=== PATIENT | female | born 1980 | race Caucasian/White ===

== ENCOUNTER → 2016-09-16 | Outpatient (REF) | payer OTHER, SELFPAY ==
[~2016-09-16] MED LIST: ACET50TA PO; ACET65TA; ADACEL IM; CEFT500T; IBUP80TA PO; MACROBID; PRENTAB74 PO
== END ==
LOC: M LAB REF 09:14
PROVIDERS: ATTEND Physician Assistant
DX: J02.9 Acute pharyngitis, unspecified (principal)

== ENCOUNTER → 2017-01-09 | Outpatient (REF) | payer OTHER | LOC: M LAB REF 10:22 | PROVIDERS: ATTEND Physician Assistant | DX: R30.0 Dysuria (principal) ==

== ENCOUNTER → 2017-01-18 | Outpatient (REF) | payer OTHER | LOC: M SFHCCLAY 10:56 | PROVIDERS: ATTEND Family Medicine | DX: R30.0 Dysuria (principal) ==

== ENCOUNTER → 2017-08-02 | Outpatient (CLI) | payer OTHER ==
[2017-08-02 20:41] LABS: BASO % 0.6 % (0.0-1.0); EOS # 0.1 10^3/uL (0.0-0.50); EOS % 1.7 % (0.0-3.0); HEMATOCRIT 41.6 % (36.0-47.0); HEMOGLOBIN 13.9 g/dl (12.0-15.5); IMMATURE GRANULOCYTE % 0.1 % (0-3.0); LYMPH % 42.5 % (24.0-44.0); MEAN CORPUSCULAR HEMOGLOBIN 28.5 pg (27.0-33.0); MEAN CORPUSCULAR HGB CONC 33.4 g/dl (32.0-36.5); MEAN CORPUSCULAR VOLUME 85.4 fl (80.0-96.0); MONO # 0.8 10^3/uL (0.0-0.8); MONO % 10.8 % (0.0-5.0); NEUTROPHILS # 3.2 10^3/uL (1.8-7.7); NEUTROPHILS % 44.3 % (36.0-66.0); PLATELET COUNT, AUTOMATED 298 10^3/uL (150-450); RED BLOOD COUNT 4.87 10^6/uL (4.00-5.40); RED CELL DISTRIBUTION WIDTH 12.4 % (11.5-14.5); WHITE BLOOD COUNT 7.1 10^3/uL (4.0-10.0)
[2017-08-02 20:56] LABS: INR 0.84; PROTHROMBIN TIME 11.5 SECONDS (12.4-14.5)
[2017-08-02 20:57] LABS: PARTIAL THROMBOPLASTIN TIME 27.9 SECONDS (26.8-37.9)
[2017-08-02 21:08] LABS: ALBUMIN 3.5 GM/DL (3.2-5.2); ALKALINE PHOSPHATASE 75 U/L (45-117); ALT/SGPT 30 U/L (12-78); ANION GAP 5 MEQ/L (8-16); AST/SGOT 17 U/L (7-37); BILIRUBIN,TOTAL 0.2 MG/DL (0.2-1.0); BLOOD UREA NITROGEN 13 MG/DL (7-18); CALCIUM LEVEL 8.4 MG/DL (8.5-10.1); CARBON DIOXIDE LEVEL 30 MEQ/L (21-32); CHLORIDE LEVEL 110 MEQ/L (98-107); CREATININE FOR GFR 0.84 MG/DL (0.55-1.30); GLOMERULAR FILTRATION RATE > 60.0 (>60); GLUCOSE, FASTING 89 MG/DL (70-100); HCG, SERUM QUANTITATIVE < 1.0 MIU/ML; POTASSIUM SERUM 3.9 MEQ/L (3.5-5.1); SODIUM LEVEL 145 MEQ/L (136-145)
== END ==
LOC: M LAB 20:16
DX: N92.4 Excessive bleeding in the premenopausal period (principal)
CPT/HCPCS: 80053

== ENCOUNTER 2019-01-13 12:58 | Day surgery (SDC) | payer OTHER ==
[~2019-01-13] VITALS: Ht 158.8 cm; Wt 71.7 kg
[~2019-01-13 12:58] MED LIST changes: -ACET50TA PO; +BUPIVACAINE/EPIN 0.25% 30 ML VIAL As Ordered ONE; +EXCETAB33 PO; +IBUP1TAB7 PO; +LIDOCAINE 1% MDV 20ML VIAL SQ PRN; +LR 1,000 ML IV ONE; +MAPA500T17 PO; +NON-325T5 PO; +ceFAZolin SOD 2 GM in IV 1 EA IV ONE
[2019-01-13] MEDS ORDERED: ONDANSETRON 4MG/2ML VIAL (J2405) As Ordered ONE (14:23)
[2019-01-13] MEDS ORDERED: KETOROLAC 60 MG/2 ML VIAL (J1885) As Ordered ONE (14:23)
[2019-01-13] MEDS ORDERED: LIDOCAINE 2% INJ 100 MG/5 ML SDV (FOR ANES.) As Ordered ONE (14:23)
[2019-01-13] MEDS ORDERED: PROPOFOL 200 MG/20 ML VIAL As Ordered ONE (14:23)
[2019-01-13] MEDS ORDERED: dexameTHASONE 4 MG/ML 1ML VIAL (J1100) As Ordered ONE (14:23)
[2019-01-13] MEDS ORDERED: MIDAZOLAM INJ 2 MG/2 ML VIAL (J2250) As Ordered ONE (15:07)
[2019-01-13] MEDS ORDERED: fentaNYL 100 MCG/2 ML INJECTION (J3010) As Ordered ONE (15:07)
[2019-01-13] MEDS: PERCOCET 5MG/325MG TAB PO PRN ×2 (17:18→17:48)
[2019-01-13] MEDS ORDERED: PERCOCET 5MG/325MG TAB As Ordered ONE (17:18)
[2019-01-13] MEDS ORDERED: ONDANSETRON 4MG/2ML VIAL (J2405) IV PRN (17:30)
[2019-01-13] MEDS: HYDROMORPHONE HCL 0.5 MG/ 0.5 ML SYRINGE (J1170 PER 1) IV PRN ×2 (17:30→17:35)
[2019-01-13] MEDS ORDERED: fentaNYL 100 MCG/2 ML INJECTION (J3010) IV PRN (17:30)
[2019-01-13] MEDS ORDERED: LR 1,000 ML IV SCH (17:30)
[2019-01-13] MEDS ORDERED: oxyCODONE 5MG TAB PO PRN ×2 (18:31)
[2019-01-13] MEDS ORDERED: MORPHINE 4 MG/ML 1ML VIAL/SYRINGE (J2270) IV PRN (18:31)
[2019-01-13 19:35] VITALS: BP 127/73
--- NOTE | 2019-01-14 07:35 | RO ---
DATE OF PROCEDURE: 01/13/2019 PREPROCEDURE DIAGNOSIS: Right small finger flexor tendon laceration. POSTPROCEDURE DIAGNOSIS: Right small finger flexor tendon laceration. PROCEDURE: Staged flexor tendon reconstruction with Juvencio kelsey placement, A1 peace release, and A4 peace reconstruction. SURGEON: Dr. Kong Boles MICROCHIP SPECIALIST: Sherine Garrison PA-C. ANESTHESIA: General. TOURNIQUET TIME: 65 minutes. PREOPERATIVE ANTIBIOTICS: 2 grams of Ancef. INDICATION: 38-year-old female who, approximately 2 months ago, had a slip with a knife and cut her small finger. She thought it would get better over time. However, did not realize that she cut her tendon until eventually the finger continued not to move. She presented for further evaluation. At that point, we had discussed that this is likely to require two-stage intervention due to scarring of the flexor sheath. She expressed understanding with this along with all of the risks and benefits including but not limited to infection, damage to surrounding structures and need for other surgery. DESCRIPTION OF PROCEDURE: Patient was brought to the operating room (OR) in supine position on the operating table, underwent general anesthesia which point a time-out was held confirming site and side and surgery. We then injected 20 mL of 0.25% Marcaine with epinephrine doing an ulnar digital block along the line of incision. We then prepped and draped the patient in the usual fashion. I did a second time out. Once all in agreement, we elevated the tourniquet to 250 mmHg. We then did a diagonal incision the small finger pulp and did a mid axial excision along the length of the small finger on the radial aspect. Then we crossed into a Gruner incision up into the palm. Once we isolated both the radial and ulnar neurovascular bundles, we then identified the flexor tear. The proximal extent of the flexor digitorum profundus (FDP) was overlying the lumbricales. The patient had a very small portion of flexor digitorum superficialis (FDS). I do believe this was nonfunctioning as the patient was unable to fire her FDS in clinic and only one of the limbs was intact. We then released the A1 peace to fully retrieve and isolate the flexor sheath. A2 was intact, however, A4 had completely scarred down and was frail appearing and required reconstruction with the limbs of FDS and was sutured in place with #3-0 PDS. We then passed the Juvencio kelsey which was 3 mm, the same width of the intact FDP proximally and slide it under the A2 peace. We then sutured it to the FDP stump overlying the insertion and tagged it to the proximal extent of the FDP that was overlying the lumbricales. At this point, we irrigated the wound thoroughly and started our closure with #4-0 Monocryl. The patient was placed in the dorsal-blocking splint with wrist flexion. The wound was dressed with Adaptic, gauze, sterile Webril, the splint and thao. We then lowered the tourniquet at 65 minutes. We then extubated the patient and she was taken in stable to the postanesthesia care unit (PACU). POSTOPERATIVE PLAN: The patient will see a hand therapist as soon as possible to get her a removable brace started. We will immediately want her working on supple range of motion of the finger through passive range of motion to maintain alignment. We will then re-evaluate her at 2 months postoperatively because we will need to see a full supple range of motion prior to a stage II flexor tendon reconstruction. Once this is complete, we will then arrange for a palmaris longus graft at that time. The patient expressed understanding and is in agreement with this preoperatively.
== END 2019-01-13 19:40 | disposition home or self-care (01) ==
LOC: M SDC 12:58
PROVIDERS: ATTEND Orthopaedic Surgery Hand Surgery
DX: S66.126A Laceration of flexor muscle, fascia and tendon of right little finger at wrist and hand level, initial encounter (principal); J45.909 Unspecified asthma, uncomplicated; Z88.0 Allergy status to penicillin; Y92.000 Kitchen of unspecified non-institutional (private) residence as the place of occurrence of the external cause; Y93.89 Activity, other specified; Y99.9 Unspecified external cause status
CPT/HCPCS: 26390; C1713; J0690; J1100; J1170; J1885; J2250; J2405; J3010

== ENCOUNTER → 2019-02-05 | Outpatient (REF) | payer OTHER ==
[~2019-02-05] MED LIST changes: -BUPIVACAINE/EPIN 0.25% 30 ML VIAL As Ordered ONE; -LIDOCAINE 1% MDV 20ML VIAL SQ PRN; -LR 1,000 ML IV ONE; -ceFAZolin SOD 2 GM in IV 1 EA IV ONE
== END ==
LOC: M LAB REF 17:12 → EEVIPCON 17:12
PROVIDERS: ATTEND Orthopaedic Surgery Hand Surgery
DX: S61.401A Unspecified open wound of right hand, initial encounter (principal); X58.XXXA Exposure to other specified factors, initial encounter; Y92.9 Unspecified place or not applicable

== ENCOUNTER 2019-02-21 13:24 | Inpatient (IN) | payer OTHER ==
[~2019-02-21] VITALS: Ht 160 cm; Wt 70.5 kg
[2019-02-21 14:15] LABS: BASO # 0.1 10^3/uL (0.0-0.2); BASO % 1.1 % (0.0-1.0); EOS # 0.1 10^3/uL (0.0-0.5); EOS % 1.5 % (0.0-3.0); HEMATOCRIT 38.8 % (36.0-47.0); HEMOGLOBIN 12.7 g/dl (12.0-15.5); LYMPH # 2.7 10^3/uL (1.5-5.0); LYMPH % 31.4 % (24.0-44.0); MEAN CORPUSCULAR HEMOGLOBIN 28.4 pg (27.0-33.0); MEAN CORPUSCULAR HGB CONC 32.7 g/dl (32.0-36.5); MEAN CORPUSCULAR VOLUME 86.8 fl (80.0-96.0); MONO % 11.8 % (0.0-5.0); NEUTROPHILS # 4.6 10^3/uL (1.5-8.5); PLATELET COUNT, AUTOMATED 280 10^3/uL (150-450); RED BLOOD COUNT 4.47 10^6/uL (4.00-5.40); WHITE BLOOD COUNT 8.4 10^3/uL (4.0-10.0)
[2019-02-21] MEDS ORDERED: ZOFR4TAB16 PO (14:24)
[2019-02-21] MEDS ORDERED: BACT800T5 PO (14:24)
[2019-02-21] MEDS ORDERED: ceFAZolin SOD 2 GM in IV 1 EA IV ONE (14:30)
[2019-02-21 14:32] LABS: BLOOD UREA NITROGEN 12 MG/DL (7-18); CALCIUM LEVEL 8.3 MG/DL (8.5-10.1); CARBON DIOXIDE LEVEL 27 MEQ/L (21-32); CHLORIDE LEVEL 107 MEQ/L (98-107); CREATININE FOR GFR 0.96 MG/DL (0.55-1.30); GLOMERULAR FILTRATION RATE > 60.0 (>60); GLUCOSE, FASTING 90 MG/DL (70-100); POTASSIUM SERUM 3.4 MEQ/L (3.5-5.1); SODIUM LEVEL 140 MEQ/L (136-145)
[2019-02-21 14:41] LABS: ERYTHROCYTE SEDIMENTATION RATE 9 mm/hr (0-20)
[2019-02-21] MEDS ORDERED: ACETAMINOPHEN 325 MG TAB As Ordered ONE (15:49)
[2019-02-21] MEDS ORDERED: ACETAMINOPHEN TAB 650MG DOSE (2X325MG) PO ONE (16:00)
[2019-02-21] MEDS ORDERED: fentaNYL 100 MCG/2 ML INJECTION (J3010) As Ordered ONE ×2 (17:04→18:59)
[2019-02-21] MEDS ORDERED: dexameTHASONE 4 MG/ML 1ML VIAL (J1100) As Ordered ONE (17:04)
[2019-02-21] MEDS ORDERED: KETOROLAC 60 MG/2 ML VIAL (J1885) As Ordered ONE (17:04)
[2019-02-21] MEDS ORDERED: ONDANSETRON 4MG/2ML VIAL (J2405) As Ordered ONE (17:04)
[2019-02-21] MEDS ORDERED: LIDOCAINE 2% INJ 100 MG/5 ML SDV (FOR ANES.) As Ordered ONE (17:04)
[2019-02-21] MEDS ORDERED: HYDROmorphone HCL 2 MG/ML 1ML VIAL (J1170) As Ordered ONE (17:04)
[2019-02-21] MEDS ORDERED: ACETAMINOPHEN 1000MG 100ML IV BTL (OFIRMEV) (J0131 PER 10MG) As Ordered ONE (17:04)
[2019-02-21] MEDS ORDERED: PROPOFOL 200 MG/20 ML VIAL As Ordered ONE (17:04)
[2019-02-21] MEDS ORDERED: MIDAZOLAM INJ 2 MG/2 ML VIAL (J2250) As Ordered ONE (17:04)
[2019-02-21] MEDS ORDERED: BUPIVACAINE HCL 0.25% 10 ML VIAL As Ordered ONE (17:07)
[2019-02-21] MEDS ORDERED: BUPIVACAINE LIPOSOME/PF 1.3% 20ML VIAL (13.3MG/ML)(EXPAREL)(C9290 PER1MG) As Ordered ONE (17:07)
[2019-02-21] MEDS ORDERED: PHENYLephrine HCL 500 MCG/5 ML (100MCG/ML) SYRINGE (J2370) As Ordered ONE (18:36)
[2019-02-21] MEDS ORDERED: PERCOCET 5MG/325MG TAB As Ordered ONE (18:59)
[2019-02-21] MEDS: fentaNYL 100 MCG/2 ML INJECTION (J3010) IV PRN ×4 (19:00→19:15)
[2019-02-21] MEDS: PERCOCET 5MG/325MG TAB PO PRN ×2 (19:10→20:30)
[2019-02-21] MEDS ORDERED: LR 1,000 ML IV SCH (19:15)
[2019-02-21] MEDS ORDERED: ONDANSETRON 4MG/2ML VIAL (J2405) IM PRN (19:15)
[2019-02-21] MEDS ORDERED: METOCLOPRAMIDE INJ 10MG/2ML VIAL (J2765) IV PRN (19:15)
[2019-02-21] MEDS ORDERED: ONDANSETRON 4MG/2ML VIAL (J2405) IV PRN (19:15)
[2019-02-21] MEDS ORDERED: ACETAMINOPHEN TAB 650MG DOSE (2X325MG) PO PRN (19:15)
[2019-02-21] MEDS ORDERED: FLEET ENEMA PR PRN (19:15)
[2019-02-21] MEDS ORDERED: oxyCODONE 5MG TAB PO PRN (19:15)
[2019-02-21] MEDS ORDERED: NS 1,000 ML IV SCH (19:15)
[2019-02-21] MEDS ORDERED: MORPHINE 10 MG/ML 1ML VIAL (J2270) As Ordered ONE (19:20)
[2019-02-21] MEDS: MORPHINE 10 MG/ML 1ML VIAL (J2270) IV PRN ×4 (19:22→20:03)
--- NOTE | 2019-02-21 20:40 | RO ---
DATE OF PROCEDURE: 02/21/2019 PREOPERATIVE DIAGNOSIS: Right postoperative wound infection. POSTOPERATIVE DIAGNOSIS: Right postoperative wound infection. PROCEDURE: Right hand irrigation and debridement along with removal of hardware. INDICATION: This is a 38-year-old female who suffered a tendon laceration, at this point, approximately two or three months ago. When she was evaluated about five weeks after the injury it was too late to do a primary repair. Therefore, she was started on stage I of II of tendon repair. She underwent a Juvencio kelsey placement. Unfortunately about four weeks later she had a local infection. We tried doing a local irrigation and debridement, however, this proved ineffective. Her cultures grew back Methicillin-resistant Staphylococcus aureus (MRSA) and therefore we have go to back for repeat irrigation and debridement along with removal of hardware. Patient expressed understanding at this time including the risks and benefits including but not limited to infection, damage to surrounding structures, incomplete relief, and need for further surgery and she was in agreement with this. SURGEON: Dr. Kong Boles WOOD COATER: None. ANESTHESIA: General. ESTIMATED BLOOD LOSS: 20 mL TOURNIQUET TIME: 55 minutes, approximately. PREOPERATIVE ANTIBIOTICS: Antibiotics were held and so cultures were obtained, then we gave 2 grams of Ancef. COMPLICATIONS: None. SPECIMENS: We sent cultures along with soft tissues to pathology. DESCRIPTION OF PROCEDURE: Patient was brought to the operating room (OR) in supine position, at which point she underwent general anesthesia. We then injected 10 mL of 0.25% Marcaine along with 10 mL of Exparel in the form of ulnar median wrist block. At which point we prepped and draped the hand in the usual fashion. We used gravity exsanguination, elevated tourniquet to 250 mmHg. We then utilizing the old incisions, opened up her hand along with excising the sinus tract in her mid palm. We encountered some purulent material in the deep palm along with finger tip. We found the Juvencio kelsey and removed this. We isolated both the radial and ulnar digital nerves of the small finger and protected them. We explored until we encountered heavy tissue towards the middle of the palm. Once we thoroughly irrigated, debrided and had taken cultures and sent soft tissue for pathology, we ran 3 liters of normal saline through the wound. Prior to this we sharply debrided with curettes along with the distal phalanx because there were slits on x-ray. We then suture closed with #4-0 nylon interrupted fashion. We placed a big bulky dressing. Tourniquet was let down. Patient was awakened and taken to PACU in stable condition. POSTOPERATIVE PLAN: The patient will be admitted over the weekend with IV antibiotics. Will have a PICC placed and have IV consult. Start on buttermaker continuous churn IV antibiotics to help beat down this infection. Monitor her on telemetry and trend markers in the meantime. If her inflammatories stay down after 6 weeks of IV antibiotics and after being off for two weeks, we will consider restarting stage I of II flexor tendon repairs. Patient expressed understanding and agreed with the plan ahead of time.
[2019-02-21 21:50] VITALS: BP 134/92
[2019-02-21 22:15] VITALS: BP 132/89
[2019-02-21 22:45] VITALS: BP 142/98
[2019-02-21] MEDS: VANCOMYCIN HCL 1,000 MG, VIAL MATE ADAPTER 1 EACH in D5W 250 ML IV SCH (23:31)
[2019-02-21 23:45] VITALS: BP 135/84
[2019-02-22] VITALS (7 sets, daily range): BP systolic 107–152; BP diastolic 71–98
[2019-02-22] MEDS: oxyCODONE 5MG TAB PO PRN ×5 (00:45→19:46)
[2019-02-22] MEDS ORDERED: ONDANSETRON 4MG/2ML VIAL (J2405) IV PRN (03:15)
[2019-02-22] MEDS: VANCOMYCIN HCL 1,000 MG, VIAL MATE ADAPTER 1 EACH in D5W 250 ML IV SCH ×3 (06:44→23:02)
[2019-02-22] MEDS: MOM 30ML SUSPENSION UDC PO SCH (09:04)
[2019-02-22] MEDS: MORPHINE 2 MG/ML 1ML VIAL (J2270) IV PRN ×3 (09:04→17:36)
[2019-02-22] MEDS: ONDANSETRON 4MG/2ML VIAL (J2405) IV PRN ×2 (09:04→18:30)
--- NOTE | 2019-02-22 14:39 | PHACANCOPD ---
PHARMACY VANCOMYCIN DOSING Pt Demographics Demographics Patient Age:38 , Weight:70.490 , Gender: female Adjusted Body Weight Date: 02/22/19, Adjusted Body Weight: Kg Events Past 24 Hours Events Past 24 Hours: NO: Dialysis, Diuretic Therapy, Change in CrCl, Fever, Elevation in WBC, Pending Diagnostics, Pending Procedures, Other Vancomycin Vancomycin indication: post-op hand infection; h/o MRSA Vancomycin Target Ranges: 15-20 mcg/ml Vancomycin Load Y/N: No Load Dose Date Time Vancomycin Load Dose: Date: Time: Vancomycin Dose Date: 02/21/19. Current Vancomycin Dose: [1g IV q8h @23] Intermittent Dosing?: No Labs Labs Item Value Date Time Creatinine 0.96 MG/DL 02/21/19 1358 White Blood Count 8.4 10^3/uL 02/21/19 1358 Micro Microbiology 02/21/19 Fungal Smear, Received Pending 02/21/19 Fungal Culture, Received Pending 02/21/19 Gram Stain - Final, Resulted 02/21/19 Wound Culture, Resulted Pending 02/21/19 Anaerobic Culture, Resulted Pending Creatinine Clearance Date:02/22/19. Creatinine Clearance: [~70 ml/min]. Pending Labs Vanco trough scheduled 02/23 @06:00 Assessment and Plan Maintaining Current Dose?: Yes Reason for dose change: No Dose Change Pharmacist Note Pharmacist Note Date: 02/22/19. Pharmacist note: pt has been started on vancomycin for a post op infection of a right-hand tendon repair. She underwent an I&D and hardware removal last evening. She has not been on vancomycin at our facility in the past. On 02/05/19, her wound culture of her right hand grew MRSA (CLARY = 0.5), cultures from the OR yesterday are still pending. She received Ancef 2g yesterday in the OR and I have started her on vancomycin 1g IV q8h. Ortho plans for a PICC line and mcc abx therapy. I have a trough scheduled for tomorrow morning. We will continue to monitor and make adjustments as necessary. Brian Serrano Pharm.D. Feb 22, 2019 14:39
[2019-02-22] MEDS: ACETAMINOPHEN 500 MG TAB PO SCH (18:31)
[2019-02-22] MEDS: MORPHINE 4 MG/ML 1ML VIAL/SYRINGE (J2270) IV PRN (21:23)
[2019-02-23] MEDS: oxyCODONE 5MG TAB PO PRN ×5 (00:21→20:32)
[2019-02-23 02:00] VITALS: BP 123/84
[2019-02-23] MEDS: ACETAMINOPHEN 500 MG TAB PO SCH ×3 (02:22→17:54)
[2019-02-23] MEDS: MORPHINE 4 MG/ML 1ML VIAL/SYRINGE (J2270) IV PRN ×6 (02:34→22:58)
[2019-02-23 06:00] VITALS: BP 113/82
[2019-02-23 06:44] LABS: VANCOMYCIN LEVEL TROUGH 14.9 UG/ML (10.0-20.0)
[2019-02-23] MEDS: VANCOMYCIN HCL 1,000 MG, VIAL MATE ADAPTER 1 EACH in D5W 250 ML IV SCH ×3 (06:58→23:43)
[2019-02-23 07:22] LABS: BLOOD UREA NITROGEN 8 MG/DL (7-18); CALCIUM LEVEL 7.9 MG/DL (8.5-10.1); CARBON DIOXIDE LEVEL 27 MEQ/L (21-32); CHLORIDE LEVEL 110 MEQ/L (98-107); CREATININE FOR GFR 0.85 MG/DL (0.55-1.30); GLOMERULAR FILTRATION RATE > 60.0 (>60); GLUCOSE, FASTING 92 MG/DL (70-100); SODIUM LEVEL 142 MEQ/L (136-145)
[2019-02-23] MEDS: MOM 30ML SUSPENSION UDC PO SCH (09:01)
[2019-02-23 10:00] VITALS: BP 114/81
[2019-02-23 14:00] VITALS: BP_SYST 114; BP_SYST 122; BP_DIAS 81; BP_DIAS 82
[2019-02-23] MEDS: ONDANSETRON 4MG/2ML VIAL (J2405) IV PRN ×2 (15:00→20:32)
[2019-02-23 18:00] VITALS: BP 123/84
[2019-02-23 22:00] VITALS: BP 147/95
[2019-02-24] MEDS: oxyCODONE 5MG TAB PO PRN ×4 (00:36→19:58)
[2019-02-24] MEDS: ACETAMINOPHEN 500 MG TAB PO SCH ×3 (01:52→18:12)
[2019-02-24 06:00] VITALS: BP 104/69
[2019-02-24] MEDS: VANCOMYCIN HCL 1,000 MG, VIAL MATE ADAPTER 1 EACH in D5W 250 ML IV SCH ×3 (08:00→22:56)
[2019-02-24] MEDS: MORPHINE 4 MG/ML 1ML VIAL/SYRINGE (J2270) IV PRN ×2 (08:00→12:35)
[2019-02-24] MEDS: MOM 30ML SUSPENSION UDC PO SCH (09:00)
[2019-02-24] MEDS ORDERED: LIDOCAINE 1% MDV 20ML VIAL As Ordered ONE (10:36)
[2019-02-24] MEDS: IBUPROFEN 600 MG TAB PO PRN (12:35)
[2019-02-24] MEDS: MORPHINE 15 MG SA TAB PO SCH ×2 (12:36→21:01)
[2019-02-24 14:00] VITALS: BP 134/95
[2019-02-24] MEDS ORDERED: SODIUM CHLORIDE 0.9% INJ 10 ML SYR IV PRN (14:30)
[2019-02-24 15:37] LABS: VANCOMYCIN LEVEL TROUGH 17.4 UG/ML (10.0-20.0)
[2019-02-24 16:31] LABS: C REACTIVE PROTEIN QUANTITATIV 0.48 MG/DL (0.00-0.30)
[2019-02-24] MEDS: SODIUM CHLORIDE 0.9% INJ 10 ML SYR IV SCH (18:12)
[2019-02-24 19:00] VITALS: BP 153/72
[2019-02-24 20:00] VITALS: BP 141/78
[2019-02-25 00:26] VITALS: BP 113/66
[2019-02-25] MEDS: ACETAMINOPHEN 500 MG TAB PO SCH ×2 (02:20→08:54)
[2019-02-25] MEDS: SODIUM CHLORIDE 0.9% INJ 10 ML SYR IV SCH (05:51)
[2019-02-25] MEDS: oxyCODONE 5MG TAB PO PRN ×3 (06:08→16:20)
[2019-02-25] MEDS: VANCOMYCIN HCL 1,000 MG, VIAL MATE ADAPTER 1 EACH in D5W 250 ML IV SCH (07:07)
[2019-02-25] MEDS ORDERED: PERC5TAB12 PO (07:08)
[2019-02-25] MEDS ORDERED: MORP15TASA PO (07:08)
[2019-02-25 07:28] LABS: BLOOD UREA NITROGEN 7 MG/DL (7-18); C REACTIVE PROTEIN QUANTITATIV 0.54 MG/DL (0.00-0.30); CALCIUM LEVEL 8.2 MG/DL (8.5-10.1); CARBON DIOXIDE LEVEL 28 MEQ/L (21-32); CHLORIDE LEVEL 108 MEQ/L (98-107); CPK CREATINE PHOSPHOKINASE 32 U/L (26-192); CREATININE FOR GFR 0.71 MG/DL (0.55-1.30); GLOMERULAR FILTRATION RATE > 60.0 (>60); GLUCOSE, FASTING 83 MG/DL (70-100); POTASSIUM SERUM 3.6 MEQ/L (3.5-5.1); SODIUM LEVEL 141 MEQ/L (136-145); VANCOMYCIN LEVEL TROUGH 14.5 UG/ML (10.0-20.0)
[2019-02-25 08:00] VITALS: BP 122/87
[2019-02-25] MEDS: MORPHINE 15 MG SA TAB PO SCH (08:53)
[2019-02-25] MEDS: MOM 30ML SUSPENSION UDC PO SCH (08:53)
--- NOTE | 2019-02-25 08:57 | CR ---
DATE OF CONSULTATION: 02/24/2019 I was asked to consult by orthopedic surgery for evaluation of postoperative wound infection of the right index finger with Staphylococcus aureus (MRSA). HISTORY OF PRESENT ILLNESS: Karina is a pleasant 38-year-old female who had cut her right small finger with a knife when cutting chicken in November 2018. The patient came to the emergency room (ER) where she had some glue placed. She did not realize she cut her tendon and did not get any attention until January. She was seen by orthopedic surgery and was diagnosed with a finger flexor tendon laceration. On 01/13/2019, the patient had surgery done with a stage flexor tendon reconstruction with a arina kelsey placement, A1 peace release. This was complicated by a postoperative wound infection with culture positive for MRSA on 02/05/2019. The patient came back to the operating room on 02/21/2019 for right hand irrigation and debridement, removal of the hardware and IV antibiotics. She was started on IV vancomycin which she le been receiving a gram every 8 hours. She had a peripherally inserted central catheter (PICC) line placed and is scheduled for discharge tomorrow. She denies any fever or chills. No nausea, vomiting or diarrhea. She feels well. PAST MEDICAL HISTORY: Past medical history is non-revealing. PAST SURGICAL HISTORY: Tendon repair right lower finger. ALLERGIES: PENICILLIN. MEDICATIONS: - morphine 15 mg by mouth twice a day - ibuprofen 600 mg every 6 as needed - vancomycin 1 gram IV every 8 hours - Zofran as needed - Percocet as needed. LABS: White count 8.4, hemoglobin 12.7, hematocrit 38.8, platelets 280, 54% neutrophils, 31% lymphocytes, 12% monocytes. Sodium 142, potassium 4, chloride 110, bicarb 27, BUN 8, creatinine 0.85, glucose 92, calcium 7.9, CRP 0.48. Wound culture on 02/05/2019 and 02/21/2019 were positive for MRSA resistant to erythromycin, methicillin and penicillin. Peripherally inserted central catheter (PICC) line was placed today. PHYSICAL EXAMINATION: Temperature is 98.5, pulse 95, respirations 18, blood pressure 153/72, O2 sat 99% on room air. Heart: Normal S1, S2. No murmurs, rubs or gallops. Lungs are clear. No wheezes or rhonchi. Abdomen: Soft, nontender. No hepatosplenomegaly. Extremities: No edema. Right hand with an incision at the base of the small finger all the way down to the wrist area. I did not open the wound but the patient did show me picture on her phone from yesterday wound dressing change. Left arm has a PICC line. She has an ecchymosis in the forearm measuring about 6 x 4 cm. IMPRESSION: Postoperative wound infection status post tendon repair. She irrigation and debridement, removal of the hardware and has been on IV vancomycin for the past 3 days. PLAN: Discontinue IV vancomycin on discharge. Start with daptomycin 500 mg IV every 24 hours. I will get prior authorization for daptomycin from her insurance carrier. Hopefully, this will be authorized as it will be much some simpler then doing every 8 hours infusion. Daptomycin could be given as a push over a 10-minute period. Will obtain CPK baseline and she will need to be monitored weekly with a CBC, CRP, sed rate, basic profile. I have discussed the case with Kyleigh from [employer] who is working on her prior authorization for daptomycin. Scripts have been written for anticipated discharge tomorrow. She will be treated initially with 2 weeks of IV antibiotic and possibly after switched to linezolid by mouth
[2019-02-25] MEDS: IBUPROFEN 600 MG TAB PO PRN (14:22)
[2019-02-25 16:00] VITALS: BP 138/83
--- NOTE | 2019-02-25 16:22 | REP ---
PICC line insertion under ultrasound guidance. The procedure was performed by LEANN Garcia, under the direct supervision of Dr. Hilario. The risks and benefits of the procedure were explained to the patient and informed consent was obtained both verbally and written. Directly prior to the start of the procedure, a formal timeout was completed in the procedure room. The left basilic vein was localized using ultrasound guidance. The skin was prepped and draped in the sterile fashion. 4 ml 1% lidocaine was used as a local anesthetic. Using ultrasound guidance the left basilic vein was cannulated and a 0.018 guidewire was inserted and advanced to the midline brachiocephalic vein using fluoroscopic guidance. The needle was removed and a 4.5 [place]an dilator and peel-away sheath was inserted over the guidewire. A 4.5 [place] single lumen catheter was cut to the length of 30 cm. The dilator was removed and the catheter was inserted over the guide wire with the tip ending in the SVC. The peel-away sheath was removed and the catheter was flushed with heparinized saline as per hospital protocol. The catheter was affixed to the skin and a sterile dressing was applied. The patient tolerated the procedure well and there were no immediate complications. 0.2 minutes of fluoroscopy time was utilized for this procedure. Some fluoroscopic images are performed with last image hold technology. These images require no additional radiation. Reviewed by LEANN Weldon 02/24/2019 04:09 P Electronically Signed by Saroj Hilario MD 02/25/2019 04:14 P
[2019-02-25] MEDS ORDERED: DAPTOmycin 500 MG in NS 50 ML IV ONE (17:00)
== END 2019-02-25 18:45 | disposition home or self-care (01) | DRG 317 ==
LOC: M SDC 13:24 → M MS5PR 21:40 → M SDC 02-22 05:19 → M MS5PR 02-22 05:20 → M PED 02-24 18:45
PROVIDERS: ADMIT Orthopaedic Surgery Hand Surgery; ATTEND Orthopaedic Surgery Hand Surgery
PROC: 0XBJ0ZZ Excision of Right Hand, Open Approach (ICD-10-PCS; 2019-02-21)
PROC: 02HV33Z Insertion of Infusion Device into Superior Vena Cava, Percutaneous Approach (ICD-10-PCS; 2019-02-21)
PROC: 0LPX0JZ Removal of Synthetic Substitute from Upper Tendon, Open Approach (ICD-10-PCS; principal; 2019-02-21 07:51)
DX: T84.69XA Infection and inflammatory reaction due to internal fixation device of other site, initial encounter (principal); B95.62 Methicillin resistant Staphylococcus aureus infection as the cause of diseases classified elsewhere; Y83.1 Surgical operation with implant of artificial internal device as the cause of abnormal reaction of the patient, or of later complication, without mention of misadventure at the time of the procedure; Z88.0 Allergy status to penicillin; Z79.899 Other long term (current) drug therapy

== ENCOUNTER → 2019-03-03 | Outpatient (REF) | payer OTHER ==
[~2019-03-03] MED LIST changes: +BACT800T5 PO; +MORP15TASA PO; +PERC5TAB12 PO; +ZOFR4TAB16 PO
[2019-03-03 13:32] LABS: HEMATOCRIT 36.4 % (36.0-47.0); MEAN CORPUSCULAR HEMOGLOBIN 28.2 pg (27.0-33.0); MEAN CORPUSCULAR VOLUME 85.6 fl (80.0-96.0); PLATELET COUNT, AUTOMATED 264 10^3/uL (150-450); RED BLOOD COUNT 4.25 10^6/uL (4.00-5.40); WHITE BLOOD COUNT 6.7 10^3/uL (4.0-10.0)
[2019-03-03 13:54] LABS: BLOOD UREA NITROGEN 17 MG/DL (7-18); C REACTIVE PROTEIN QUANTITATIV < 0.30 MG/DL (0.00-0.30); CALCIUM LEVEL 8.6 MG/DL (8.5-10.1); CARBON DIOXIDE LEVEL 27 MEQ/L (21-32); CHLORIDE LEVEL 108 MEQ/L (98-107); CREATININE FOR GFR 0.74 MG/DL (0.55-1.30); GLOMERULAR FILTRATION RATE > 60.0 (>60); GLUCOSE, FASTING 73 MG/DL (70-100); POTASSIUM SERUM 3.9 MEQ/L (3.5-5.1); SODIUM LEVEL 143 MEQ/L (136-145)
[2019-03-03 14:15] LABS: ERYTHROCYTE SEDIMENTATION RATE 9 mm/hr (0-20)
== END ==
LOC: M SHH 12:49
PROVIDERS: ATTEND Internal Medicine Infectious Disease
DX: T84.59XA Infection and inflammatory reaction due to other internal joint prosthesis, initial encounter (principal); L08.9 Local infection of the skin and subcutaneous tissue, unspecified; B95.62 Methicillin resistant Staphylococcus aureus infection as the cause of diseases classified elsewhere

== ENCOUNTER → 2019-03-10 | Outpatient (REF) | payer OTHER ==
[2019-03-10 15:34] LABS: HEMATOCRIT 38.6 % (36.0-47.0); HEMOGLOBIN 12.3 g/dl (12.0-15.5); MEAN CORPUSCULAR HGB CONC 31.9 g/dl (32.0-36.5); MEAN CORPUSCULAR VOLUME 87.7 fl (80.0-96.0); PLATELET COUNT, AUTOMATED 300 10^3/uL (150-450); WHITE BLOOD COUNT 7.2 10^3/uL (4.0-10.0)
[2019-03-10 16:02] LABS: BLOOD UREA NITROGEN 10 MG/DL (7-18); C REACTIVE PROTEIN QUANTITATIV < 0.30 MG/DL (0.00-0.30); CALCIUM LEVEL 8.4 MG/DL (8.5-10.1); CARBON DIOXIDE LEVEL 26 MEQ/L (21-32); CHLORIDE LEVEL 106 MEQ/L (98-107); CREATININE FOR GFR 0.73 MG/DL (0.55-1.30); GLOMERULAR FILTRATION RATE > 60.0 (>60); GLUCOSE, FASTING 74 MG/DL (70-100); POTASSIUM SERUM 3.8 MEQ/L (3.5-5.1); SODIUM LEVEL 141 MEQ/L (136-145); VANCOMYCIN LEVEL TROUGH 13.8 UG/ML (10.0-20.0)
[2019-03-10 16:25] LABS: ERYTHROCYTE SEDIMENTATION RATE 6 mm/hr (0-20)
== END ==
LOC: M SHH 14:40
PROVIDERS: ATTEND Internal Medicine Infectious Disease
DX: L08.9 Local infection of the skin and subcutaneous tissue, unspecified (principal); B95.62 Methicillin resistant Staphylococcus aureus infection as the cause of diseases classified elsewhere; T84.59XA Infection and inflammatory reaction due to other internal joint prosthesis, initial encounter; Y83.1 Surgical operation with implant of artificial internal device as the cause of abnormal reaction of the patient, or of later complication, without mention of misadventure at the time of the procedure

== ENCOUNTER → 2019-03-27 | Outpatient (REF) | payer OTHER ==
[2019-03-27 13:34] LABS: BASO # 0.1 10^3/uL (0.0-0.2); BASO % 0.9 % (0.0-1.0); EOS # 0.1 10^3/uL (0.0-0.5); EOS % 1.8 % (0.0-3.0); HEMATOCRIT 40.1 % (36.0-47.0); LYMPH # 2.1 10^3/uL (1.5-5.0); LYMPH % 38.8 % (24.0-44.0); MEAN CORPUSCULAR HEMOGLOBIN 28.1 pg (27.0-33.0); MEAN CORPUSCULAR HGB CONC 32.4 g/dl (32.0-36.5); MEAN CORPUSCULAR VOLUME 86.6 fl (80.0-96.0); MONO # 0.6 10^3/uL (0.0-0.8); MONO % 11.2 % (0.0-5.0); NEUTROPHILS # 2.6 10^3/uL (1.5-8.5); NEUTROPHILS % 47.1 % (36.0-66.0); PLATELET COUNT, AUTOMATED 165 10^3/uL (150-450); RED BLOOD COUNT 4.63 10^6/uL (4.00-5.40); WHITE BLOOD COUNT 5.5 10^3/uL (4.0-10.0)
== END ==
LOC: M SFHCPLAZ 11:50
PROVIDERS: ATTEND Internal Medicine Infectious Disease
DX: A49.02 Methicillin resistant Staphylococcus aureus infection, unspecified site (principal)

== ENCOUNTER → 2019-05-01 | Outpatient (REF) | payer OTHER ==
[2019-05-01 16:08] LABS: BASO % 0.5 % (0.0-1.0); EOS # 0.2 10^3/uL (0.0-0.5); EOS % 2.4 % (0.0-3.0); HEMATOCRIT 39.4 % (36.0-47.0); HEMOGLOBIN 12.2 g/dl (12.0-15.5); LYMPH # 2.4 10^3/uL (1.5-5.0); LYMPH % 37.7 % (24.0-44.0); MEAN CORPUSCULAR HEMOGLOBIN 27.7 pg (27.0-33.0); MEAN CORPUSCULAR VOLUME 89.5 fl (80.0-96.0); MONO # 0.6 10^3/uL (0.0-0.8); MONO % 9.6 % (0.0-5.0); NEUTROPHILS # 3.1 10^3/uL (1.5-8.5); NEUTROPHILS % 49.5 % (36.0-66.0); PLATELET COUNT, AUTOMATED 278 10^3/uL (150-450); WHITE BLOOD COUNT 6.2 10^3/uL (4.0-10.0)
[2019-05-01 17:44] LABS: ERYTHROCYTE SEDIMENTATION RATE 5 mm/hr (0-20)
== END ==
LOC: M LABDRAW1 15:22
PROVIDERS: ATTEND Orthopaedic Surgery Hand Surgery
DX: Z79.899 Other long term (current) drug therapy (principal); S66.12 Laceration of flexor muscle, fascia and tendon of other and unspecified finger at wrist and hand level

== ENCOUNTER → 2019-12-19 | Outpatient (CLI) | payer OTHER ==
[~2019-12-19] MED LIST changes: +NEPH1TAB PO; +PNV1TAB6 PO; +TUMS500C PO; +UNIS25TA3 PO
--- NOTE | 2020-01-08 11:16 | REP ---
FIRST TRIMESTER OBSTETRICAL ULTRASOUND CLINICAL: Dating and viability. TECHNIQUE: Transabdominal obstetrical ultrasound with color Doppler evaluation. FINDINGS: Ultrasound examination demonstrates a single live early intrauterine . Gestational sac with pole noted. [place]-rump length (CRL) 49 mm corresponds to 11 weeks 4 days gestational age with estimated date of delivery 07/05/2020. heart rate equals 150 beats per minute. Maternal ovaries are normal. There is suggestion for a small anterior intramural fibroid measuring 1.4 x 1.6 x 0.6 cm. Cervix measures 3.9 cm in length and appears closed. IMPRESSION: Single live early intrauterine with measurement at 11 weeks 4 days gestational age. Complete anatomical assessment should be performed at 19-20 weeks. MTDD
== END ==
LOC: M WHC 14:52
PROVIDERS: ATTEND Nurse Practitioner Family
DX: Z36.89 Encounter for other specified antenatal screening (principal); Z3A.11 11 weeks gestation of pregnancy

== ENCOUNTER 2020-02-17 11:15 | Outpatient (CLI) | payer OTHER ==
[~2020-02-17] VITALS: Ht 160 cm; Wt 70.4 kg
[~2020-02-17 11:15] MED LIST changes: -NEPH1TAB PO; -PNV1TAB6 PO; -TUMS500C PO; -UNIS25TA3 PO
[2020-02-17] MEDS ORDERED: LR 1,000 ML IV ONE (13:00)
[2020-02-17 13:36] LABS: BASO % 0.4 % (0.0-1.0); EOS # 0.1 10^3/uL (0.0-0.5); EOS % 0.7 % (0.0-3.0); HEMATOCRIT 31.7 % (36.0-47.0); HEMOGLOBIN 10.6 g/dl (12.0-15.5); LYMPH % 22.1 % (24.0-44.0); MEAN CORPUSCULAR HEMOGLOBIN 28.8 pg (27.0-33.0); MEAN CORPUSCULAR HGB CONC 33.4 g/dl (32.0-36.5); MEAN CORPUSCULAR VOLUME 86.1 fl (80.0-96.0); MONO # 0.8 10^3/uL (0.0-0.8); MONO % 8.4 % (0.0-5.0); NEUTROPHILS # 6.1 10^3/uL (1.5-8.5); PLATELET COUNT, AUTOMATED 232 10^3/uL (150-450); RED BLOOD COUNT 3.68 10^6/uL (4.00-5.40)
[2020-02-17] MEDS ORDERED: METOCLOPRAMIDE INJ 10MG/2ML VIAL (J2765 PER 1) IV ONE (14:00)
[2020-02-17 14:09] LABS: APPEARANCE, URINE CLEAR (CLEAR); BACTERIA, URINE AUTO 1+ (NEGATIVE); BILIRUBIN, URINE AUTO NEGATIVE (NEGATIVE); BLOOD, URINE BLOOD NEGATIVE (NEGATIVE); COLOR, URINE COLORLESS (YELLOW); GLUCOSE, URINE (UA) AUTO NEGATIVE (NEGATIVE); KETONE, URINE AUTO NEGATIVE (NEGATIVE); LEUKOCYTE ESTERASE, URINE AUTO NEGATIVE (NEGATIVE); NITRITE, URINE AUTO NEGATIVE (NEGATIVE); PROTEIN, URINE AUTO NEGATIVE (NEGATIVE); RBC, URINE AUTO 0 /HPF (0-3); SPECIFIC GRAVITY URINE AUTO 1.001 (1.002-1.035); SQUAMOUS EPITHELIAL CELL UR AU 0 /HPF (0-6); UROBILINOGEN, URINE AUTO 0.2 mg/dL (0.0-2.0); WBC, URINE AUTO 0 /HPF (0-3)
[2020-02-17 14:11] LABS: ALBUMIN 2.6 GM/DL (3.2-5.2); ALT/SGPT 27 U/L (12-78); BILIRUBIN,TOTAL 0.2 MG/DL (0.2-1.0); BLOOD UREA NITROGEN 12 MG/DL (7-18); CALCIUM LEVEL 8.6 MG/DL (8.5-10.1); CARBON DIOXIDE LEVEL 22 MEQ/L (21-32); CHLORIDE LEVEL 107 MEQ/L (98-107); CREATININE FOR GFR 0.53 MG/DL (0.55-1.30); GLOMERULAR FILTRATION RATE > 60.0 (>60); GLUCOSE, FASTING 71 MG/DL (70-100); POTASSIUM SERUM 5.9 MEQ/L (3.5-5.1); SODIUM LEVEL 136 MEQ/L (136-145); TOTAL PROTEIN 6.2 GM/DL (6.4-8.2)
[2020-02-17] MEDS ORDERED: NEPH1TAB PO (14:36)
[2020-02-17] MEDS ORDERED: PNV1TAB6 PO (14:36)
[2020-02-17] MEDS ORDERED: TUMS500C PO (14:36)
[2020-02-17] MEDS ORDERED: UNIS25TA3 PO (14:36)
== END 2020-02-17 15:15 | disposition home or self-care (01) ==
LOC: M LDO 11:15
PROVIDERS: ATTEND Obstetrics & Gynecology
DX: O99.282 Endocrine, nutritional and metabolic diseases complicating pregnancy, second trimester (principal); E86.0 Dehydration; O21.9 Vomiting of pregnancy, unspecified; Z3A.20 20 weeks gestation of pregnancy; Z88.0 Allergy status to penicillin
CPT/HCPCS: 80053; 81001; 85025; 96374; J2765

== ENCOUNTER → 2020-02-18 | Outpatient (CLI) | payer OTHER ==
[~2020-02-18] MED LIST changes: +NEPH1TAB PO; +PNV1TAB6 PO; +TUMS500C PO; +UNIS25TA3 PO
--- NOTE | 2020-02-19 08:27 | REP ---
INDICATION: ANATOMY COMPARISON: 12/19/2019 TECHNIQUE: Transabdominal obstetrical ultrasound with color Doppler evaluation. FINDINGS: Examination demonstrates a single live intrauterine in breech presentation. motion is identified by technologist. Placenta is noted with suggestions for anterior and posterior lobes and grade 1 without evidence for placenta previa or abruption. Amniotic fluid volume is normal. Cervix measures approximately 3.7 cm in length and appears closed. The placental origin of the umbilical cord is noted on the posterior portion of the placenta. There is a nonspecific hypoechoic area within the anterior myometrium similar to prior examination and nonspecific in appearance.. Findings may represent possible fibroid. Gestational age by LMP 19 weeks 4 days with FERNANDO 07/10/2020. Gestational age by current measurements 20 weeks 1 day with FERNANDO 07/06/2020. FHR equals 150 beats per minute. BPD: 4.5 cm 19 weeks 4 days HC: 16.9 cm 19 weeks 4 days AC: 14.8 cm 20 weeks 0 days FL: 3.4 cm 20 weeks 3 days HL: 3.3 cm 21 weeks 0 days HC/AC: 1.15 Estimated weight 335 grams (77thpercentile). Anatomical assessment demonstrates normal structures including cranium, choroid plexus, cavum, cerebellum/posterior fossa, facial features, lungs, four-chamber heart/ventricular outflow tracts, diaphragm, stomach, cord insertion/three-vessel cord, kidneys/bladder, spine, and extremities. IMPRESSION: Single live intrauterine demonstrating appropriate interval growth. Anatomical assessment is complete and normal. Possible bilobed placenta <Electronically signed by Henry Lopez > 02/19/20 0823
== END ==
LOC: M WHC 14:54
PROVIDERS: ATTEND Obstetrics & Gynecology
DX: Z34.82 Encounter for supervision of other normal pregnancy, second trimester (principal); Z36.89 Encounter for other specified antenatal screening; Z3A.19 19 weeks gestation of pregnancy

== ENCOUNTER → 2020-04-16 | Outpatient (CLI) | payer OTHER ==
[~2020-04-16] MED LIST changes: +ACET-838 PO; -NON-325T5 PO
== END ==
LOC: M LAB 11:11
PROVIDERS: ATTEND Obstetrics & Gynecology
DX: Z34.82 Encounter for supervision of other normal pregnancy, second trimester (principal); Z36.89 Encounter for other specified antenatal screening

== ENCOUNTER → 2020-04-28 | Outpatient (CLI) | payer OTHER | LOC: M LAB 08:22 | PROVIDERS: ATTEND Obstetrics & Gynecology | DX: O99.810 Abnormal glucose complicating pregnancy (principal); Z3A.00 Weeks of gestation of pregnancy not specified ==

== ENCOUNTER → 2020-05-28 | Outpatient (CLI) | payer OTHER | LOC: M WHC 19:10 | PROVIDERS: ATTEND Obstetrics & Gynecology | DX: O24.419 Gestational diabetes mellitus in pregnancy, unspecified control (principal); Z3A.00 Weeks of gestation of pregnancy not specified ==

== ENCOUNTER → 2020-06-04 | Outpatient (CLI) | payer OTHER ==
--- NOTE | 2020-06-04 17:08 | REP ---
INDICATION: GROWTH. COMPARISON: 02/18/2020. TECHNIQUE: Real-time sonographic evaluation of the gravid uterus performed. FINDINGS: Estimated gestational age is34 weeks 6 days, EDC 07/10/2020. Today's measurements indicate appropriate growth. Presentation: Cephalic Placenta anterior and posterior, grade 2, without evidence of placenta previa. heart rate is recorded at 167 beats per minute. Amniotic fluid is subjectively normal. JOSE 11.9, normal range 7.9-24.9. Closed cervical length is measured at 3.1 cm. Biometry chart: BPD: 88 mm, 35 weeks 2 days, 56th percentile. HC: 311 mm, 34 weeks 5 days, 47th percentile AC: 321 mm, 36 weeks 0 days, 66th percentile Femur length: 68 mm, 35 weeks 1 days, 53rd percentile HC to AC ratio: 0.97, normal range 0.94-1.13. Estimated weight: 2708, 66th percentile. IMPRESSION: Viable single intrauterine gestation as above. Appropriate growth. <Electronically signed by Saroj Hilario > 06/04/20 [id number]
== END ==
LOC: M WHC 13:57
PROVIDERS: ATTEND Obstetrics & Gynecology
DX: O24.419 Gestational diabetes mellitus in pregnancy, unspecified control (principal); O09.523 Supervision of elderly multigravida, third trimester; Z3A.34 34 weeks gestation of pregnancy

== ENCOUNTER → 2020-06-10 | Outpatient (REF) | payer OTHER | LOC: M SFHCWAGY 12:55 | PROVIDERS: ATTEND Obstetrics & Gynecology | DX: O24.419 Gestational diabetes mellitus in pregnancy, unspecified control (principal) ==

== ENCOUNTER 2020-06-18 10:27 | Inpatient (IN) | payer OTHER ==
[~2020-06-18] VITALS: Ht 158.8 cm; Wt 72.0 kg
[2020-06-18] VITALS (22 sets, daily range): BP systolic 117–168; BP diastolic 75–99
[2020-06-18] MEDS ORDERED: METF500T13 PO (10:55)
[2020-06-18] MEDS ORDERED: LR 1,000 ML IV SCH (11:12)
[2020-06-18] MEDS ORDERED: LACTATED RINGER'S 1000 ML IV STA (11:12)
[2020-06-18] MEDS ORDERED: CALCIUM CARBONATE 500 MG CHEW U/D PO PRN (11:15)
[2020-06-18 11:48] LABS: HEMATOCRIT 32.3 % (36.0-47.0); HEMOGLOBIN 10.1 g/dl (12.0-15.5); MEAN CORPUSCULAR HEMOGLOBIN 24.8 pg (27.0-33.0); MEAN CORPUSCULAR HGB CONC 31.3 g/dl (32.0-36.5); MEAN CORPUSCULAR VOLUME 79.2 fl (80.0-96.0); PLATELET COUNT, AUTOMATED 279 10^3/uL (150-450); RED BLOOD COUNT 4.08 10^6/uL (4.00-5.40); WHITE BLOOD COUNT 14.3 10^3/uL (4.0-10.0)
[2020-06-18 12:15] LABS: ALT/SGPT 21 U/L (12-78); BILIRUBIN,TOTAL 0.3 MG/DL (0.2-1.0); CREATININE FOR GFR 0.63 MG/DL (0.55-1.30); GLOMERULAR FILTRATION RATE > 60.0 (>58); LDH LACTATE DEHYDROGENASE 222 U/L (84-246); URIC ACID 4.1 MG/DL (2.6-6.0)
[2020-06-18 12:25] LABS: CREATININE,RANDOM URINE 88.9 MG/DL; TOTAL PROTEIN,RANDOM URINE 17.8 MG/DL (0.0-12.0)
[2020-06-18 12:32] LABS: CORD GAS ABE V -5.5; CORD GAS HCO3 V 18.7 MEQ/L; CORD GAS O2 SAT V 96.9 %; CORD GAS PCO2 V 33.4 mmHg; CORD GAS PH V 7.367 UNITS; CORD GAS PO2 V 84.8 mmHg; CORD GAS TCO2 V 19.8 MEQ/L
[2020-06-18] MEDS ORDERED: FENTANYL 2MCG/ML ROPIVACAINE 0.2% IN 0.9% NACL 100ML IVBAG As Ordered ONE (12:56)
[2020-06-18] MEDS ORDERED: OXYTOCIN 30 UNITS IN 0.9% NaCl 500ML IV BAG (J2590) As Ordered ONE (12:58)
[2020-06-18] MEDS ORDERED: EPIDURAL/PCA KEYS XX PRN (13:15)
[2020-06-18] MEDS ORDERED: FENTANYL/ROPIVACAINE/NACL BAG 100 ML EPIDURAL SCH (13:15)
[2020-06-18] MEDS ORDERED: ePHEDrine SULFATE 25 MG/5 ML(5MG/ML) SYRINGE IV PRN (13:15)
[2020-06-18] MEDS ORDERED: LACTATED RINGER'S 1000 ML IV PRN (13:15)
[2020-06-18] MEDS ORDERED: NALOXONE INJ 0.4MG/1ML VIAL (J2310 PER 1MG) IV PRN (13:15)
[2020-06-18] MEDS ORDERED: ONDANSETRON 4MG/2ML VIAL IV PRN (13:15)
[2020-06-18] MEDS ORDERED: EPIDURAL COMMENT XX SCH (13:15)
[2020-06-18] MEDS ORDERED: diphenhydrAMINE 50MG/ML VIAL (J1200) IV PRN (13:15)
[2020-06-18] MEDS ORDERED: REFRIGERATOR IV KEYS XX PRN (13:15)
[2020-06-18 13:36] LABS: GLUCOSE,RANDOM 71 MG/DL (LESS THAN 200)
[2020-06-18] MEDS ORDERED: DIBUCAINE 1% OINTMENT 30GM TOP PRN (15:25)
[2020-06-18] MEDS ORDERED: ACETAMINOPHEN TAB 650MG DOSE (2X325MG) PO PRN (15:25)
[2020-06-18] MEDS ORDERED: DOCUSATE SODIUM 100MG CAPSULE PO PRN (15:25)
[2020-06-18] MEDS ORDERED: IBUPROFEN 600MG TAB PO PRN (15:25)
[2020-06-18] MEDS ORDERED: RHOGAM 300 MCG (1500 IU) INJ (J2790) IM SCH (15:25)
[2020-06-18] MEDS ORDERED: MEASLES,MUMPS,RUBELLA VACCINE INJ (MMR-II) (90707) SC SCH (15:25)
[2020-06-18] MEDS ORDERED: OXYTOCIN DRIP 30 UNITS in IV 1 EA IV SCH ×2 (15:25→16:00)
[2020-06-18] MEDS ORDERED: METHYLERGONOVINE MALEATE 0.2 MG TAB PO PRN (15:25)
[2020-06-18] MEDS: IBUPROFEN 800 MG TAB PO PRN (18:31)
[2020-06-18] MEDS ORDERED: PERCOCET 5MG/325MG TAB PO PRN (18:50)
[2020-06-18] MEDS: PERCOCET 5MG/325MG TAB PO PRN (21:22)
[2020-06-19] MEDS: PERCOCET 5MG/325MG TAB PO PRN ×2 (02:11→15:52)
[2020-06-19] MEDS: IBUPROFEN 800 MG TAB PO PRN ×2 (05:21→13:26)
[2020-06-19 06:00] VITALS: BP 134/92
[2020-06-19] MEDS: DOCUSATE SODIUM 100MG CAPSULE PO PRN (08:21)
[2020-06-19] MEDS: ACETAMINOPHEN 500 MG TAB PO PRN ×2 (08:21→20:58)
[2020-06-19] MEDS: PRENATAL VITAMINS CHEWABLE TABLET PO SCH (08:21)
--- NOTE | 2020-06-19 10:46 | HPE ---
HISTORY AND PHYSICAL DATE: 06/18/2020 SUBJECTIVE: Karina is a 40-year-old 8 para 6, 0, 1, 6 at 37 and 4/7 weeks gestation, EDC of 07/05/2020 based on first trimester ultrasound presents to labor and delivery today with report of uncomfortable contractions that became more difficult to cope with at approximately 07:00. She reports positive bloody show times the last 3 days and some intermittent irregular contractions on and off for the last 3 days. She denies leakage of fluid. The fetus has been active. Her care was initiated at [facility] in the first trimester with a transfer of care to [facility] at 33 weeks gestation. course complicated by A1 gestational diabetes which transferred to A2 gestational diabetes approximately 1 week ago when metformin was started 500 mg at bedtime, advanced maternal age. She did undergo panoramic testing and noted to have low risk for aneuploid and a female fetus, late transfer of care, a history of rapid labor and grand multiparity. OBSTETRIC HISTORY: 1. May, a 7 week miscarriage. 2. March, vaginal delivery 8 pound 11 ounce female, 41 weeks complicated by a fractured clavicle. 3. February, vaginal delivery 7 pound 9 ounce male, uncomplicated 41 weeks gestation. 4. Aug, 2004 vaginal delivery male 8 pounds 3 ounces, no complications. 5. February, vaginal delivery 7 pound 4 ounce female, 38 weeks gestation, no complications. 6. December, vaginal delivery 8 pound 4 ounce female, 40 weeks gestation, induction, no complications. 7. Aug, 2012 vaginal delivery 7 pound 11 ounce female, 39 weeks, no complications, induction. OBSTETRIC LABS: B positive. Antibody screen negative. Rubella immune. Syphilis negative. Hepatitis B surface antigen negative. HIV negative. Hepatitis C antibody nonreactive. Urine culture no growth. Gonorrhea and chlamydia negative. Pap was normal. Panoramic testing low risk for aneuploid, female fetus. Gestational diabetic screening abnormal at 169; three hour glucose tolerance test abnromal; fasting of 81, one hour 181, two hour 157 and three hour 57. GBS is negative. PAST MEDICAL HISTORY: Nephrolithiasis 2008 PAST SURGICAL HISTORY: 1. Lithotripsy 2008. 2. Finger surgeries of the right small finger. FAMILY HISTORY: Asthma, hypertension, abdominal aortic aneurysm, autoimmune disorders, incompetent cervix. SOCIAL HISTORY: She is a nonsmoker. She denies alcohol and drug use. She denies any history sexually transmitted infections. She denies a history of abuse physical, sexual or emotional. She is single; however, the father of the baby is at bedside and supportive. ALLERGIES: PENICILLIN. CURRENT MEDICATIONS: Include: 1. Metformin 500 mg at bedtime. 2. Reglan p.r.n. for nausea. 3. vitamin. 4. Tums p.r.n.. OBJECTIVE: A full set of vital signs have not been taken. Her blood pressures are elevated at 159/94, 157/99. She is alert and oriented times 3. She does appear uncomfortable with her contractions. heart rate is 150 with moderate variability, positive accelerations, no decelerations. Contractions are moderate to palpation every 4-6 minutes. Her abdomen is gravid, cephalic presentation with an estimated weight of about 7.5 pounds. Sterile vaginal exam: 4-5 cm dilated, 90% effaced, -1 station, mid posterior, large bloody show, bulging bag of water. ASSESSMENT: 1. Intrauterine at 37 and 4/7 weeks. 2. heart rate is Category 1. 3. Labor. PLAN: 1. Admit patient to labor and delivery. 2. Routine labs with the addition of a preeclamptic profile and a spot urine. 3. I.V. fluid bolus. 4. The patient is requesting an epidural for her labor coping. 5. May need to consider augmentation with I.V. Pitocin or assisted rupture of membranes following epidural administration. The patient has been verbally consented for emergency surgery and blood products if they are necessary. I do anticipate labor progress and a spontaneous vaginal delivery.
[2020-06-19 17:57] VITALS: BP 139/90
[2020-06-20] MEDS: IBUPROFEN 800 MG TAB PO PRN (01:42)
[2020-06-20 06:00] VITALS: BP 130/83
[2020-06-20] MEDS: PRENATAL VITAMINS CHEWABLE TABLET PO SCH (07:49)
[2020-06-20] MEDS: DOCUSATE SODIUM 100MG CAPSULE PO PRN (07:49)
[2020-06-20] MEDS ORDERED: IBUP80TA PO (12:00)
[2020-06-20] MEDS ORDERED: DOK1CAP7 PO (12:00)
--- NOTE | 2020-06-20 12:34 | IPNPDOC ---
Progress Note Date of Service: Jun 20, 2020 Day#: 2 Progress Note PPD 2 SUBJECT: Karina is a 40yo [id number] s/p uncomplicated at term after presenting in active labor, doing well day # 2. She has been ambulating, voiding spontaneously without issue and tolerating regular diet. Breast feeding without issue. Reports lochia is like a normal period. Denies n/v/CP/SOB/f/c. OBJECTIVE: VITAL SIGNS: Within normal limits, afebrile. Alert and oriented times three. Abdomen: Fundus firm at U-2. Soft, NTTP. Extremities: no pain with palpation of calves Labs: H/H 10.1/32.3 ASSESSMENT: Karina is a 40yo [id number] s/p uncomplicated at term after presenting in active labor, doing well day # 2. Vitals within normal limits, afebrile, hemodynamically stable with no evidence of infection. PLAN: 1. Discharge to home today. 2. Tylenol and Motrin for pain. 3. Encouraged breast feeding and ambulation. 4. Interested in Mirena IUD, will re-discuss at 6wk PP visit 5. Routine PP visit in 6 weeks in clinic. 6. Discussed return precautions at length. 7. No heavy lifting and vaginal rest 6 weeks Katie Hicks MD VS, I&O, 24H, Fishbone Vital Signs/I&O Vital Signs Date Time Temp Pulse Resp B/P (MAP) Pulse Ox O2 Delivery O2 Flow Rate FiO2 06/20/20 06:00 98.3 75 16 130/83 (99) 97 Room Air Katie Hicks MD Jun 20, 2020 12:34
--- NOTE | 2020-06-20 12:38 | DS.PDOC ---
Discharge Summary General Date of Admission Jun 18, 2020 at 11:18 Date of Discharge Jun 20, 2020 Attending Physician: Katie Hicks MD Discharge Summary PROCEDURES PERFORMED DURING STAY: spontaneous vaginal delivery ADMITTING DIAGNOSES: 1. Active labor at term 2. A2GDM DISCHARGE DIAGNOSES: 1. Active labor at term, s/p uncomplicated 2. A2GDM COMPLICATIONS/CHIEF COMPLAINT: Labor Check. HISTORY OF PRESENT ILLNESS/HOSPITAL COURSE: Karina is a 40yo [id number] s/p uncomplicated at term after presenting in active labor, doing well day # 2. She has had a benign course. At time of discharge, vitals are within normal limits, she is afebrile, hemodynamically stable with no evidence of infection. DISCHARGE MEDICATIONS: Please see below. ALLERGIES: Please see below. PHYSICAL EXAMINATION ON DISCHARGE: VITAL SIGNS: Within normal limits, afebrile. Alert and oriented times three. Abdomen: Fundus firm at U-2. Soft, NTTP. Extremities: no pain with palpation of calves LABORATORY DATA: Please see below. H/H .3 DISCHARGE PLAN/INSTRUCTIONS: 1. Discharge to home today. 2. Tylenol and Motrin for pain. 3. Encouraged breast feeding and ambulation. 4. Interested in Mirena IUD, will re-discuss at 6wk PP visit 5. Routine PP visit in 6 weeks in clinic. 6. Discussed return precautions at length. 7. No heavy lifting and vaginal rest 6 weeks DISCHARGE CONDITION: Stable TIME SPENT ON DISCHARGE: Greater than 20 minutes. Vital Signs/I&Os Vital Signs Date Time Temp Pulse Resp B/P (MAP) Pulse Ox O2 Delivery O2 Flow Rate FiO2 06/20/20 06:00 98.3 75 16 130/83 (99) 97 Room Air Discharge Medications Scheduled Vit,Calc76/Iron/Folic (Pnv 29-1 Tablet) 1 Each Tablet, 1 TAB PO DAILY, (Reported) Scheduled PRN Acetaminophen (Acetaminophen) 325 Mg Tablet, 650 MG PO Q4-6HP PRN for PAIN, (Reported) Docusate Sodium (Dok) 100 Mg Capsule, 100 MG PO QHSP PRN for CONSTIPATION Ibuprofen (Ibuprofen) 800 Mg Tablet, 800 MG PO Q8HP PRN for PAIN LEVEL 6-10 Allergies Coded Allergies: Penicillins (Verified Allergy, Intermediate, hives, 01/10/19) Katie Hicks MD Jun 20, 2020 12:38
== END 2020-06-20 16:25 | disposition home or self-care (01) | DRG 560 ==
LOC: M LDO 10:27 → M LDI 11:18 → M OBS 18:00
PROVIDERS: ADMIT Advanced Practice Midwife; ATTEND Advanced Practice Midwife
PROC: 10E0XZZ Delivery of Products of Conception, External Approach (ICD-10-PCS; principal; 2020-06-18)
DX: O24.425 Gestational diabetes mellitus in childbirth, controlled by oral hypoglycemic drugs (principal); Z37.0 Single live birth; Z3A.37 37 weeks gestation of pregnancy; O09.523 Supervision of elderly multigravida, third trimester; Z88.0 Allergy status to penicillin

== ENCOUNTER → 2023-11-05 | Outpatient (CLI) | payer OTHER ==
[~2023-11-05] MED LIST changes: -ACET-838 PO; +ACET32TAB PO; +DOK1CAP4 PO; +EXCETAB32 PO; -EXCETAB33 PO; +METF500T13 PO
[2023-11-05 13:59] LABS: FREE T4 1.01 NG/DL (0.89-1.76); THYROID STIMULATING HORMONE 1.141 uIU/ML (0.55-4.78)
[2023-11-05 14:02] LABS: THYROID PEROXIDASE ANTIBODY < 28.0 U/ML (<60.0)
== END ==
LOC: M LAB 12:51
PROVIDERS: ATTEND Nurse Practitioner Family
DX: E04.2 Nontoxic multinodular goiter (principal)

== ENCOUNTER → 2024-10-23 | Outpatient (CLI) | payer OTHER ==
[~2024-10-23] MED LIST changes: +MORP-138 PO; -MORP15TASA PO
== END ==
LOC: M RAD 14:31
PROVIDERS: ATTEND Registered Nurse
DX: R22.32 Localized swelling, mass and lump, left upper limb (principal)